=== PATIENT | male | born 1990 | race Caucasian/White ===

== ENCOUNTER 2017-08-31 03:03 | Inpatient (IN) | payer BC, OTHER ==
[~2017-08-31] VITALS: Ht 182.9 cm; Wt 104.3 kg
--- NOTE | 2017-08-31 03:30 | NUR ---
PRE-ADMISSION NOTE Patient is 28-year-old male seen at intake. Patient verbalizes he is anxious, with a headache of 7/10, and generalized body aches. Patient states he has some chills and flushing, and mild nausea. SN discussed with patient the admission policies of the unit. Patient is coherent and able to respond to questions appropriately. Pt is ambulatory with steady gait. Vital signs taken and as follows: BP: 130/82, P: 78, R: 18, O2: 95%, T: 98.8, PA: 7/10. Pt verbalized understanding of instructions and teachings regarding unit protocols such as taking of vital signs Q4H and handling and disposal of contraband. Will continue with admission upon pt's arrival on the unit. Addendum: 08/31/17 at 0718 by DILCIA DICKSON LVN Patient is [id number].
[2017-08-31] MEDS ORDERED: MAG HYDROX/AL HYDROX/SIMETH 30 ML LIQUID UDC PO PRN (03:45)
[2017-08-31] MEDS ORDERED: CLONIDINE HCL 0.1 MG TABLET PO PRN (03:45)
[2017-08-31] MEDS ORDERED: IBUPROFEN 400 MG TABLET PO PRN (03:45)
[2017-08-31] MEDS ORDERED: BUPRENORPHINE HCL 2 MG TAB.SUBL SL PRN (03:45)
[2017-08-31] MEDS ORDERED: LOPERAMIDE HCL 2 MG CAPSULE PO PRN ×2 (03:45)
[2017-08-31] MEDS ORDERED: MIRALAX 17 GM POWD.PACK PO PRN (03:45)
[2017-08-31] MEDS ORDERED: HYDROXYZINE PAMOATE 25 MG CAPSULE PO PRN (03:45)
[2017-08-31] MEDS ORDERED: THIAMINE HCL 200 MG/2 ML VIAL IM ONE (03:45)
[2017-08-31] MEDS ORDERED: LORAZEPAM 1 MG TABLET PO PRN ×2 (03:45)
[2017-08-31] MEDS ORDERED: LORAZEPAM 2 MG/1 ML VIAL IM PRN (03:45)
[2017-08-31] MEDS ORDERED: ACETAMINOPHEN 325 MG TABLET PO PRN (03:45)
[2017-08-31] MEDS: ONDANSETRON ODT 4 MG TAB.RAPDIS SL PRN (03:59)
[2017-08-31 04:00] VITALS: BP 130/82
[2017-08-31] MEDS: METHOCARBAMOL 750 MG TABLET PO PRN ×2 (04:00→20:38)
[2017-08-31] MEDS ORDERED: ONDANSETRON ODT 4 MG TAB.RAPDIS ONE (04:05)
[2017-08-31] MEDS ORDERED: METHOCARBAMOL 750 MG TABLET ONE (04:05)
[2017-08-31] MEDS ORDERED: LORAZEPAM 1 MG TABLET ONE (04:05)
[2017-08-31 04:23] LABS: BASOPHILS # (AUTO) 0.2 K/uL (0.0-8.0); EOSINOPHILS # (AUTO) 0.1 K/uL (0.0-0.7); EOSINOPHILS % (AUTO) 1.6 % (0.0-7.0); HEMATOCRIT 48.4 % (40-50); HEMOGLOBIN 16.5 G/DL (14.0-18.0); LYMPHOCYTES # (AUTO) 2.7 K/UL (0.8-4.8); LYMPHOCYTES % (AUTO) 30.2 % (20.5-51.5); MEAN CORPUSCULAR HEMOGLOBIN 29.9 UUG (27.0-31.0); MEAN CORPUSCULAR HGB CONC 34 g/dL (32.0-37.0); MEAN CORPUSCULAR VOLUME 87.5 FL (82.0-92.0); MONOCYTES # (AUTO) 0.9 K/UL (0.1-1.30); MONOCYTES % (AUTO) 10.2 % (0.0-11.0); NEUTROPHILS # (AUTO) 5.1 K/UL (1.8-8.9); PLATELET COUNT (AUTO) 304 K/UL (150-450); RED BLOOD CELL COUNT(AUTO) 5.53 MIL/UL (4.7-6.1)
[2017-08-31 04:26] LABS: *AMPHETAMINE, URINE NEGATIVE (NEGATIVE); *BARBITURATE, URINE NEGATIVE (NEGATIVE); *CANNABINOID, URINE POSITIVE (NEGATIVE); *COCCAINE, URINE NEGATIVE (NEGATIVE); *OPIATE, URINE NEGATIVE (NEGATIVE); *PHENCYCLIDINE SCREEN,URINE NEGATIVE (NEGATIVE)
[2017-08-31 04:27] LABS: THYROID STIMULATING HORMONE 3.622 mIU/mL (0.358-3.740)
[2017-08-31 04:29] LABS: ALANINE AMINOTRANSFERASE 52 U/L (16-63); ALKALINE PHOSPHATASE 91 U/L (50-136); AMYLASE 44 U/L (25-115); ASPARTATE AMINOTRANSFERASE 30 U/L (15-37); BILIRUBIN,TOTAL 1.7 mg/dL (0.2-1.0); CARBON DIOXIDE 29 mmol/L (21-32); CHLORIDE 103 mmol/L (98-107); CREATININE 1.3 mg/dL (0.6-1.3); GLUCOSE 115 mg/dL (74-106); LIPASE 132 U/L (73-393); MAGNESIUM 1.8 mg/dL (1.8-2.4); POTASSIUM 3.4 mmol/L (3.5-5.1); TOTAL PROTEIN, SERUM 7.9 g/dL (6.4-8.2); UREA NITROGEN, BLOOD 14 mg/dL (7-18)
--- NOTE | 2017-08-31 04:30 | NUR ---
ADMISSION NOTE Patient is 28-year-old male admitted on 08/31/17 for ETOH and heroin dependence, arrived on the unit at 0345. Pt has NKA and denies history of seizures. Pt was able to provide UDS at intake. Upon admission, COWS was 6 and CIWA was 12, BP: 130/82, P: 78, R: 18, O2: 95%, T: 98.8, PA: 7/10. Weight 230 lbs, height 6. Pt reports he does not have a PCP, smokes 2-3 cigarettes daily. Patient denies being hospitalized within past 30 days. Pt is able to understand and respond to all questions pertaining to his hospitalization. Substance Abuse History is as follows: 1. ETOH (Whiskey or Vodka) at least 1 liter daily, last intake of 1 liter on 08/30/17, at this rate for the 2 months. 2. Heroin, 0.5 gram/daily, last intake of 0.5 gram on 08/30/17. At this rate for 3 days. 3. Cannabis 1 joint daily, last intake was 08/30/17, of a couple hits. At this rate for the last 2 weeks. Pts longest sober period for 3 years from [id number]. Patients last treatment had been over 3 years ago. Patient has been in sober living since, participating in group homes. Patient states he relapsed 2 months ago and began drinking, until he started using Heroin again. Patient states that once he realized he started slipping he sought help. Patient denies history of substance abuse in his immediate family. PMH: Anxiety, restless legs, hx of appendectomy, and hx of ruptured tympanic membrane. Pt denies any hx of seizures. Pt brought two medications from home, Neurontin and Vistaril, but states he hasnt take any of the home meds in over 2 months because he feels that they are ineffective. Upon assessment, pt is alert and oriented x4,presents with anxiety, reports chills and headache. Respirations are even and unlabored. Patient denies SOB, chest pain, with mild tremors felt. Bowel sounds active x 4, abdomen soft. PERRLA. Skin intact, dry and warm to touch, no open wounds noted. Pt denies SI/HI. Educational information provided and left at bedside. Pt oriented to room and encouraged to notify staff with any concerns. Safety measures in place. Call light within reach, side rails up x 2, bed locked and in low position. Will continue to monitor. Addendum: 08/31/17 at 0718 by DILCIA DICKSON LVN Patient is [id number].
[2017-08-31] MEDS ORDERED: GABA-536 PO (04:31)
[2017-08-31] MEDS ORDERED: HYDR50CA PO (04:31)
[2017-08-31 04:45] LABS: ETHANOL < 3 MG/DL (0-0)
--- NOTE | 2017-08-31 07:05 | NUR ---
END OF SHIFT Patient is 27-year-old male admitted on 08/31/17 for ETOH and heroin dependence. Patient has past medical history of anxiety, restless legs, hx of appendectomy, and hx of ruptured tympanic membrane. Pt denies any hx of seizures. Patient is NKA, FULL code, and on a regular diet. Patient slept for 2 hours, total intake 500 mL, void x2, stool x0. Patient was given Ativan, Zofran, Robaxin and Vit B1 injection. Last COWS was 6, CIWA was 12. Safety measures in place, bed locked in low position, side rails up x2, call light within reach. Will endorse to day shift.
[2017-08-31 08:00] VITALS: BP 136/94
--- NOTE | 2017-08-31 08:15 | NUR ---
START OF SHIFT; RECEIVED PT ASLEEP LAYING IN BED. RESPIRATIONS EVEN AND UNLABORED. HE STATES"PLEASE LET ME SLEEP". INFORMED HIM OF MEDICATION TIMES. HE STATES HE DOES NOT WANT THEM OR NEED THEM NOW. CIWA DEFERRED. WILL CONTINUE TO MONITOR.
[2017-08-31] MEDS: FOLIC ACID 1 MG TABLET PO SCH (09:00)
[2017-08-31] MEDS: MULTIVITAMINS,THERAPEUTIC TABLET PO SCH (09:00)
[2017-08-31] MEDS: THIAMINE HCL 100 MG TABLET PO SCH (09:00)
[2017-08-31] MEDS ORDERED: TUBERCULIN,PURIF.PROT.DERIV. 5 TU/0.1 ML TEST ID ONE ×2 (09:00→13:00)
[2017-08-31 09:08] LABS: EOSINOPHILS % (MANUAL) 1 % (0-8); LYMPHOCYTES % (MANUAL) 32 % (20-40); NEUTROPHILS % (MANUAL) 67 % (42-75)
--- NOTE | 2017-08-31 09:30 | NUR ---
AM MEDS HELD. MADE AWARE. Addendum: 08/31/17 at 1749 by MIRNA LAZO RN [facility]
[2017-08-31 12:00] VITALS: BP 138/92
[2017-08-31] MEDS: LORAZEPAM 1 MG TABLET PO SCH ×3 (14:29→20:38)
[2017-08-31] MEDS ORDERED: POTASSIUM CHLORIDE 20 MEQ TAB.PRT.SR PO ONE (15:00)
[2017-08-31 16:00] VITALS: BP 139/92
--- NOTE | 2017-08-31 19:00 | NUR ---
END OF SHIFT: PT STARTED ON ATIVAN TAPER TODAY. LAST CIWA 3.HE REPORTED SOME ANXIETY AND DEPRESSION EARLIER IN SHIFT AND DENIES S/I AND H/I. HE SLEPT ON AND OFF MOST OF SHIFT . HE REFUSED PPD. NO PRNS GIVEN. WILL PASS SHIFT REPORT TO SAP BASIS ARCHITECT NURSE.
--- NOTE | 2017-08-31 19:30 | NUR ---
Start of Shift Notes Received a 27-year-old male admitted on 08/31/17 for ETOH and heroin dependence. Patient has past medical history of anxiety, restless legs, hx of appendectomy, and hx of ruptured tympanic membrane. Pt denies any hx of seizures. Patient has NKA, FULL code, and on a regular diet. During the rounds at 1930, reported that his anxiety is mild, runny nose and tremors are mild to moderate. Safety measures in place, bed locked in low position, side rails up x2, call light within reach. We'll continue to monitor.
[2017-08-31 20:00] VITALS: BP 132/82
[2017-08-31] MEDS: DICYCLOMINE HCL 20 MG TABLET PO PRN (20:38)
--- NOTE | 2017-08-31 20:39 | NUR ---
RN note PRN Bentyl and Robaxin Pt c/o abdominal spasms and generalized muscle pain=7/10. Administered Bentyl 20 mg PO PRN and Robaxin 750 mg PO PRN as ordered. Will reassess.
--- NOTE | 2017-08-31 21:40 | NUR ---
Reassessment of pain Px verbalized that his body aches decreased from 7/10 to 4-5/10 and his stomach cramps improved. We'll continue to monitor.
[2017-09-01] VITALS: BP 129/71
--- NOTE | 2017-09-01 | NUR ---
CIWA deferred CIWA deferred due to the px is asleep, to assess if the px is awake per doctor's order. We'll continue to monitor.
[2017-09-01 04:00] VITALS: BP 122/69
[2017-09-01 05:56] LABS: HEPATITIS B SURFACE AG Negative (Negative)
--- NOTE | 2017-09-01 07:14 | NUR ---
End of Shift Notes 27-year-old male admitted on 08/31/17 for ETOH and heroin dependence. Patient has past medical history of anxiety, restless legs, hx of appendectomy, and hx of ruptured tympanic membrane. Pt denies any hx of seizures. Patient has NKA, FULL code, and on a regular diet. During the shift, reported that his anxiety is mild, runny nose and tremors are mild to moderate. At 2039, Px complained abdominal spasms and generalized muscle pain=7/10. Administered Bentyl 20 mg PO PRN and Robaxin 750 mg PO PRN as ordered. Oral intake of 800 ml, voided 1x, No BM. Slept for 7 hours. Safety measures in place, bed locked in low position, side rails up x2, call light within reach. We'll continue to monitor.
[2017-09-01 08:00] VITALS: BP 122/80
--- NOTE | 2017-09-01 08:00 | NUR ---
START OF SHIFT: RECEIVED PT A/O X 4 LAYING IN BED. HE REPORTS HE IS SLEEPING OK . HE REPORTS FATIGUE AND RESTLESSNESS. HE DENIES DEPRESSION. HE STATES HE FEELS "CRAPPY". ATIVAN TAPER IN PROGRESS TO MANAGE S/S OF W/D. CIWA 6. ENCOURAGED INCREASED FLUIDS. ENCOURAGED GROUPS LATER TODAY IF HE FEELS BETTER. WILL CONTINUE TO MONITOR AND MANAGE S/S OF W/D.
[2017-09-01] MEDS: LORAZEPAM 1 MG TABLET PO SCH ×3 (09:09→21:01)
[2017-09-01] MEDS: FOLIC ACID 1 MG TABLET PO SCH (09:09)
[2017-09-01] MEDS: THIAMINE HCL 100 MG TABLET PO SCH (09:10)
[2017-09-01] MEDS: MULTIVITAMINS,THERAPEUTIC TABLET PO SCH (09:10)
[2017-09-01 12:00] VITALS: BP 135/63
[2017-09-01 16:00] VITALS: BP 123/93
--- NOTE | 2017-09-01 18:38 | NUR ---
END OF SHIFT: PT CONTINUES ON ATIVAN TAPER TODAY. LAST CIWA 6 HE REPORTED SOME ANXIETY ,RESTLESSNESS AND IRRITABILITY.HE PRESENTS WITH BLUNTED AFFECT. HE SLEPT MOST OF AM HE REPORTED NOT FEELING WELL. HE SHOWERED THIS AFTERNOON. NO PRNS GIVEN. HE STATES THE ATIVAN IS EFFECTIVE.WILL PASS SHIFT REPORT TO NIGHT NURSE.
--- NOTE | 2017-09-01 19:30 | NUR ---
Start of Shift Notes Received a 27-year-old male admitted on 08/31/17 for ETOH and heroin dependence. Patient has past medical history of anxiety, restless legs, hx of appendectomy, and hx of ruptured tympanic membrane. Pt denies any hx of seizures. Patient has NKA, FULL code, and on a regular diet. During the rounds at 1930, reported that his anxiety is so high, body aches of 8/10, H/A of 6/10, and N/V. Safety measures in place, bed locked in low position, side rails up x2, call light within reach. We'll continue to monitor.
[2017-09-01 20:00] VITALS: BP 153/86
[2017-09-01] MEDS: CLONIDINE HCL 0.1 MG TABLET PO SCH (21:01)
[2017-09-01] MEDS: GABAPENTIN 300 MG CAPSULE PO SCH (21:01)
[2017-09-01] MEDS: METHOCARBAMOL 750 MG TABLET PO PRN (21:01)
--- NOTE | 2017-09-01 21:01 | NUR ---
PRN med for pain Px complained of generalized body aches 03/29 and H/A of 02/27. Robaxin 750 mg/tab, 1 tab and Tylenol 325 mg/tab, 2 tabs given PO as PRN meds. We'll continue to monitor.
[2017-09-01] MEDS: ONDANSETRON ODT 4 MG TAB.RAPDIS SL PRN (21:02)
--- NOTE | 2017-09-01 21:02 | NUR ---
PRN Zofran SL Px complained of N/V. Zofran 4 mg/tab, 1 tab given SL as PRN med. We'll continue to monitor.
[2017-09-02] VITALS: BP 118/64
--- NOTE | 2017-09-02 | NUR ---
CIWA deferred CIWA deferred due to the px is asleep, to assess if the px is awake per doctor's order. We'll continue to monitor.
[2017-09-02 04:00] VITALS: BP 125/71
--- NOTE | 2017-09-02 07:13 | NUR ---
End of Shift Notes 27-year-old male admitted on 08/31/17 for ETOH and heroin dependence. Patient has past medical history of anxiety, restless legs, hx of appendectomy, and hx of ruptured tympanic membrane. Px denies any hx of seizures. Patient has NKA, FULL code, and on a regular diet. During the shift, reported that his anxiety is so high, body aches of 8/10, H/A of 6/10, and N/V. Robaxin 750 mg/tab, 1 tab and Tylenol 325 mg/tab, 2 tabs given PO as PRN meds. Zofran 4 mg/tab, 1 tab given SL as PRN med. Oral intake of 850 ml, voided 2x, No BM. Slept for 6.5 hours. Safety measures in place, bed locked in low position, side rails up x2, call light within reach. We'll continue to monitor. Endorsed to AM shift nurse.
[2017-09-02 08:00] VITALS: BP 103/64
--- NOTE | 2017-09-02 08:15 | NUR ---
START OF SHIFT: RECEIVED PT A/O X 4 LAYING IN BED. HE REPORTS HE IS SLEEPING OK . HE REPORTS DEPRESSION AND BECAME TEARFUL ON ASSESSMENT REGARDING HIS RELAPSE AND MISSING HOME. CIWA 5 HE DENIES S/I AND H/I. HE STATES HE FEELS TIRED AND RESTLESS. ATIVAN TAPER IN PROGRESS TO MANAGE S/S OF W/D. ENCOURAGED INCREASED FLUIDS. ENCOURAGED GROUP ATTENDANCE THIS AM TO PROCESS FEELINGS. ENCOURAGED HIM NOT TO ISOLATE IN HIS ROOM AND TO INTERACT MORE WITH PEERS.WILL CONTINUE TO MONITOR AND OFFER SUPPORT.
[2017-09-02] MEDS ORDERED: LORAZEPAM 1 MG TABLET PO SCH (09:00)
[2017-09-02] MEDS: LORAZEPAM 1 MG TABLET PO SCH ×4 (10:03→21:36)
[2017-09-02] MEDS: THIAMINE HCL 100 MG TABLET PO SCH (10:04)
[2017-09-02] MEDS: CLONIDINE HCL 0.1 MG TABLET PO SCH ×2 (10:04→21:37)
[2017-09-02] MEDS: GABAPENTIN 300 MG CAPSULE PO SCH ×2 (10:05→21:37)
[2017-09-02] MEDS: MULTIVITAMINS,THERAPEUTIC TABLET PO SCH (10:05)
[2017-09-02] MEDS: FOLIC ACID 1 MG TABLET PO SCH (10:06)
[2017-09-02 12:00] VITALS: BP 117/61
[2017-09-02] MEDS: BUPRENORPHINE HCL 2 MG TAB.SUBL SL SCH ×3 (12:22→21:37)
--- NOTE | 2017-09-02 13:42 | NUR ---
PRN ZOFRAN ODT GIVEN FOR REPORTED NAUSEA. TRANSFER OF CARE TO RECEIVING NURSE. REPORT GIVEN.
[2017-09-02] MEDS: ONDANSETRON ODT 4 MG TAB.RAPDIS SL PRN (13:47)
--- NOTE | 2017-09-02 13:59 | NUR ---
ENDORSEMENT FROM OUTGOING RN Received report from outgoing RN Soraya. Quilt Maker will resume care of patient.
[2017-09-02] MEDS ORDERED: LORAZEPAM 1 MG TABLET PO PRN ×2 (14:00)
[2017-09-02] MEDS ORDERED: LORAZEPAM 1 MG TABLET PO ONE (14:00)
--- NOTE | 2017-09-02 14:44 | NUR ---
Therapist prompted client about group times. Client stated he wants to rest today and will try to go to groups tomorrow.
--- NOTE | 2017-09-02 14:47 | NUR ---
ONE TIME ATIVAN Patient's CIWA 11. One time Ativan given as ordered. Will continue to monitor patient.
--- NOTE | 2017-09-02 15:47 | NUR ---
REASSESSMENT ONE TIME ATIVAN Patient's CIWA is 9. Med effective.
[2017-09-02 16:00] VITALS: BP 130/79
--- NOTE | 2017-09-02 17:13 | NUR ---
PRN CLONIDINE Patient complains of anxiety. PRN clonidine given (130/79, HR 92). Will continue to monitor patient.
[2017-09-02] MEDS: ONDANSETRON 4 MG/2 ML VIAL IM PRN (17:42)
--- NOTE | 2017-09-02 17:42 | NUR ---
PRN ZOFRAN IM Patient vomited X2. PRN zofran IM given. Will continue to monitor patient.
--- NOTE | 2017-09-02 18:06 | NUR ---
PRN ATIVAN 2MG PO Patient's CIWA 17. PRN Ativan 2mg po given as ordered and as discussed with Dr. Ortega.
--- NOTE | 2017-09-02 18:13 | NUR ---
REASSESSMENT PRN CLONIDINE Patient reports med mildly effective. Patient remains anxious.
--- NOTE | 2017-09-02 18:20 | NUR ---
REASSESSMENT ZOFRAN IM Patient reports vomiting ceased and nausea improved.
--- NOTE | 2017-09-02 19:00 | NUR ---
REASSESSMENT PRN ATIVAN 2MG PO Patient's CIWA is now 10. Patient reports symptoms have improved.
--- NOTE | 2017-09-02 19:15 | NUR ---
START OF SHIFT NOTE : Patient is 48 year old male admitted for medically supervised withdrawal from alcohol and heroin. Patient is full code with NKA. Pt. placed on 5-day Ativan taper on 08/31/2017 and modified subutex taper on 09/02/2017. Pt. complains of anxiety, body ache, sleeplessness. Denies diarrhea and goosebumps at this time. Ambulating with steady gait, no falls noted. Safety measures in place : bed on lowest position with side rails x2 up for safety, call light within reach. Will continue to monitor closely and offer help. Addendum: 09/03/17 at 0650 by ABIGAIL MAYER RN Pt. is 27 years old
--- NOTE | 2017-09-02 19:17 | NUR ---
END OF SHIFT Patient is 48 year old male admitted for medically supervised withdrawal from alcohol and heroin. Patient is full code with NKA. On 5-day Ativan and modified subutex taper. Most recent CIWA: 10 and COWS: 13. Reports anxiety, body aches, mild sweating, tremors, stomach cramps, chills, runny nose, restlessness. Denies diarrhea and goosebumps at this time. Med complaint this shift. ONE time Ativan ordered, PRN clonidine (anxiety), PRN Zofran IM given (vomited X2) and PRN Ativan 2mg po (CIWA 17) given. Ambulating with steady gait, no falls noted. No BM reported. overnight housepersonawake overnight counselor will continue to monitor patient. Addendum: 09/02/17 at 1919 by MELINDA MARINO RN Patient is 27 years old (not 48 yrs old)
[2017-09-02 20:00] VITALS: BP 116/76
--- NOTE | 2017-09-02 21:00 | NUR ---
PRN BENADRYL Pt. complains of sleeplessness. PRN BENADRYL given as ordered. Safety measures in place : bed on lowest position with side rails x2 up for safety, call light within reach. Will continue to monitor closely and offer help.
[2017-09-02] MEDS: diphenhydrAMINE 50 MG CAPSULE PO PRN (21:36)
--- NOTE | 2017-09-02 22:00 | NUR ---
RE-ASSESSMENT TIM Pt. is sleeping, RR=16 unlabored and even. Safety measures in place : bed on lowest position with side rails x2 up for safety, call light within reach. Will continue to monitor closely and offer help.
--- NOTE | 2017-09-03 06:50 | NUR ---
END OF SHIFT NOTE : Patient is 27 year old male admitted for medically supervised withdrawal from alcohol and heroin. Patient is full code with NKA. Pt. placed on 5-day Ativan taper on 08/31/2017 and modified subutex taper on 09/02/2017. Pt remains compliant with the treatment plan. PRN BENADRYL given during my shift. V/S remain WNL. RR=16, even and unlabored, lungs clear upon auscultation, abdomen soft and non- distended. Pt denies nausea, vomiting and diarrhea. CIWA and COWS taken when pt. was alert during the night, LAST CIWA=5 ,COWS=5 at 0400 , BPLISJ=0632 ml, voided x3 , slept 8 hours. Safety measures in place : bed on lowest position with side rails x2 up for safety, call light within reach. Will continue to monitor closely and offer help.
--- NOTE | 2017-09-03 07:30 | NUR ---
START OF SHIFT Pt 27 y/o male admitted for medically supervised withdrawal. Pt received in room on bed with eyes closed resting, but easily arousable to name. Pt alert and oriented to name, place, and time. Perrla. Skin warm and slightly moist to touch. Respirations even and unlabored. Bilateral hand tremors noted slightly. It was reported that pt slept for 8 hours last night. Bed on lowest position with side rails x2 up for safety. Call light within reach. No distress noted at this time.
[2017-09-03 08:00] VITALS: BP 111/68
[2017-09-03] MEDS: METHOCARBAMOL 750 MG TABLET PO PRN ×2 (08:58→21:07)
[2017-09-03] MEDS: LORAZEPAM 1 MG TABLET PO SCH ×4 (08:58→21:07)
[2017-09-03] MEDS: CLONIDINE HCL 0.1 MG TABLET PO SCH ×2 (08:59→21:07)
[2017-09-03] MEDS: GABAPENTIN 300 MG CAPSULE PO SCH ×2 (08:59→21:07)
[2017-09-03] MEDS: THIAMINE HCL 100 MG TABLET PO SCH (08:59)
[2017-09-03] MEDS: MULTIVITAMINS,THERAPEUTIC TABLET PO SCH (08:59)
[2017-09-03] MEDS: FOLIC ACID 1 MG TABLET PO SCH (08:59)
[2017-09-03] MEDS ORDERED: BUPRENORPHINE HCL 2 MG TAB.SUBL SL SCH (09:00)
[2017-09-03] MEDS ORDERED: LORAZEPAM 1 MG TABLET PO SCH (09:00)
--- NOTE | 2017-09-03 09:02 | NUR ---
prn Pt states has body aches 8/10. Robaxin po prn per MD order given and tolerated well.
--- NOTE | 2017-09-03 10:02 | NUR ---
PRN EVAL Pt states body aches 10/30.
[2017-09-03 12:00] VITALS: BP 131/85
[2017-09-03] MEDS: BUPRENORPHINE HCL 2 MG TAB.SUBL SL SCH ×2 (14:09→21:07)
[2017-09-03] MEDS: ONDANSETRON 4 MG/2 ML VIAL IM PRN (14:50)
--- NOTE | 2017-09-03 14:54 | NUR ---
PRN Pt with 1 vomit episode. Zofran im prn per MD order given and tolerated well.
--- NOTE | 2017-09-03 15:54 | NUR ---
PRN EVAL Pt denies any nausea at this time.
[2017-09-03 16:00] VITALS: BP 125/83
[2017-09-03] MEDS: MAGNESIUM HYDROXIDE 30 ML LIQUID UDC PO PRN (18:21)
--- NOTE | 2017-09-03 18:24 | NUR ---
PRN Pt states feels constipated. MOM po prn per MD order given and tolerated well.
--- NOTE | 2017-09-03 18:45 | NUR ---
END OF SHIFT Pt 27 y/o male admitted for medically supervised withdrawal. Pt alert and oriented to name, place, and time. Perrla. Skin warm and slightly moist to touch. Respirations even and unlabored. Bilateral hand tremors noted. Pt observed mostly isolative to room throughout the day. Pt did not attend group activity. Pt was seen by MD today. Pt medication compliant and tolerated well. No ASE noted. Bed on lowest position with side rails x2 up for safety. Call light within reach. No distress noted at this time.
--- NOTE | 2017-09-03 19:15 | NUR ---
Start of Shift Note: Patient is a 27 y.o male admitted on 08/31/17 for Opiate and ETOH dependence. Patient reported drinking atleast 1 liter daily for 2 months, Heroin 0.5 grams daily for 3 days and Cannabis 1 joint daily for 2 weeks. Patient has PMHx of Anxiety, Restless leges, Hx of Appendectomy and Ruptured Tympanic Membrane. No seizure history noted. Patient is on a regular diet with no known food and drug allergies. Full Code status. Skin intact. Patient is on a modified Ativan and Subutex taper and tolerating well. Last COWS 7 CIWA 3. PRN Zofran IM, Robaxin & MOM given during day shift. Patient is alert & oriented x4. Patient is ambulatory with a steady gait. No shortness of breath noted. Respiration even & unlabored. Pt presented with complaints of sweating, chills, 6/10 generalized body aches, stuffy nose, flushed face, restlessness, nausea & anxiety. Bilateral hand tremors noted. Patient denies any hallucinations at this time. Safety measures in place. Bed locked in lowest position. Both side rails up. Call light within pt's reach. Will continue to monitor patient.
[2017-09-03 20:00] VITALS: BP 164/85
[2017-09-03] MEDS: ONDANSETRON ODT 4 MG TAB.RAPDIS SL PRN (21:07)
--- NOTE | 2017-09-03 21:07 | NUR ---
PRn Robaxin & Zofran Patient complains of nausea and body aches. NO episode of vomiting noted. PRn Zofran and Robaxin administered as ordered. Will continue to monitor patient.
[2017-09-03] MEDS: DICYCLOMINE HCL 20 MG TABLET PO PRN (22:00)
--- NOTE | 2017-09-03 22:00 | NUR ---
PRn Bentyl and Miralax Patient complained of constipation and abdominal cramping. PRN Miralax and Bentyl administered as ordered. Will continue to monitor patient,
--- NOTE | 2017-09-03 22:07 | NUR ---
PRN Reassessment Pt verbalized nausea and relief from body aches. PRN medication effective. Will continue to monitor patient.
--- NOTE | 2017-09-03 23:00 | NUR ---
PRN Reassessment Pt verbalized relief from stomach cramping. Pt still with no bowel movement. Will continue to monitor patient/
[2017-09-04] VITALS: BP 112/70
[2017-09-04 04:00] VITALS: BP 106/70
--- NOTE | 2017-09-04 07:12 | NUR ---
End of Shift Note: Patient is a 27 y.o male admitted on 08/31/17 for Opiate and ETOH dependence. Patient had an uneventful night. Patient continues on his Subutex and Ativan taper and tolerating well. Last COWS is 10 CIWA 5. Pt reported that taper medication is effective in controlling his withdrawal symptoms. Pt received PRN Bentyl for stomach cramps, Miralax for constipation, Robaxin for body aches and Zofran for nausea. Patient remained stable and vitals WNL. Pt remained compliant with medications and treatment. Patient slept for a total of 8 hours. Fluid intake: 1400ml. Will continue to encourage pt to increase fluid intake. Will continue to encourage pt to increase fluid intake. Voided 2x. Still no bowel movement noted. Will continue to monitor for BM. All needs attended & met. Safety measures in place. Will endorse pt to day shift nurse.
--- NOTE | 2017-09-04 07:30 | NUR ---
START OF SHIFT Pt 27 y/o male admitted for medically supervised withdrawal. Pt received in room on bed awake. Pt alert and oriented to name, place, and time. Perrla. Skin warm and slightly moist to touch. Respirations even and unlabored. Bilateral hand tremors noted slightly. Pt states feels slightly anxious this morning. It was reported that pt slept for 8 hours last night. Bed on lowest position with side rails x2 up for safety. Call light within reach. No distress noted at this time.
[2017-09-04 08:00] VITALS: BP 129/72
[2017-09-04] MEDS ORDERED: LORAZEPAM 1 MG TABLET PO SCH ×2 (09:00)
[2017-09-04] MEDS: LORAZEPAM 1 MG TABLET PO SCH ×3 (09:37→21:26)
[2017-09-04] MEDS: BUPRENORPHINE HCL 2 MG TAB.SUBL SL SCH ×3 (09:38→21:26)
[2017-09-04] MEDS: FOLIC ACID 1 MG TABLET PO SCH (09:39)
[2017-09-04] MEDS: MULTIVITAMINS,THERAPEUTIC TABLET PO SCH (09:39)
[2017-09-04] MEDS: CLONIDINE HCL 0.1 MG TABLET PO SCH ×2 (09:39→21:27)
[2017-09-04] MEDS: THIAMINE HCL 100 MG TABLET PO SCH (09:39)
[2017-09-04] MEDS: GABAPENTIN 300 MG CAPSULE PO SCH ×3 (09:39→21:26)
[2017-09-04] MEDS: METHOCARBAMOL 750 MG TABLET PO PRN ×2 (09:43→21:27)
[2017-09-04] MEDS: MAGNESIUM HYDROXIDE 30 ML LIQUID UDC PO PRN (09:43)
--- NOTE | 2017-09-04 09:43 | NUR ---
PRN Pt with c/o generalized pain 5/10. Motrin po prn per MD order given and tolerated well.
--- NOTE | 2017-09-04 09:43 | NUR ---
PRN Pt states he is constipated. MOM oral prn per MD order given and tolerated well.
--- NOTE | 2017-09-04 09:43 | NUR ---
PRN Pt with c/o body aches 02/27. Robaxin po prn per MD order given and tolerated well.
[2017-09-04] MEDS: IBUPROFEN 600 MG TABLET PO PRN ×2 (09:44→21:26)
--- NOTE | 2017-09-04 10:43 | NUR ---
PRN EVAL Pt states body aches 10/30.
--- NOTE | 2017-09-04 10:43 | NUR ---
PRN EVAL Pt still with no BM. Awaiting call back MD. Encourage po fluids and ambulation.
--- NOTE | 2017-09-04 10:43 | NUR ---
PRN [place] pt states pain 11/27.
--- NOTE | 2017-09-04 12:09 | NUR ---
Therapist prompted client to attend group. Client agreed to attend group today.
[2017-09-04 12:34] VITALS: BP 116/72
[2017-09-04] MEDS ORDERED: MAGNESIUM CITRATE 296 ML BOTTLE PO ONE (13:00)
--- NOTE | 2017-09-04 13:19 | NUR ---
ONE TIME Pt still with no BM. made aware with new order for magnesium citrate oral drink , noted and carried out.
[2017-09-04 16:00] VITALS: BP 121/77
[2017-09-04] MEDS ORDERED: NICOTINE POLACRILEX 4 MG GUM-PK OF TEN BC PRN (16:00)
[2017-09-04] MEDS: NICOTINE 14 MG/24HR PATCH TD SCH (16:00)
[2017-09-04] MEDS ORDERED: LACTULOSE 20 G/30 ML LIQUID UDC PO PRN (16:00)
--- NOTE | 2017-09-04 18:38 | NUR ---
END OF SHIFT Pt 27 y/o male admitted for medically supervised withdrawal. Pt alert and oriented to name, place, and time. Perrla. Skin warm and slightly moist to touch. Respirations even and unlabored. Bilateral hand tremors noted. Pt observed mostly isolative to room throughout the day. Pt did attend group activity. Pt was seen by MD today. Pt medication compliant and tolerated well. No ASE noted. Bed on lowest position with side rails x2 up for safety. Call light within reach. No distress noted at this time.
--- NOTE | 2017-09-04 19:15 | NUR ---
Start of Shift Note: Patient is a 27 y.o male admitted on 08/31/17 for Opiate and ETOH dependence. Patient reported drinking atleast 1 liter daily for 2 months, Heroin 0.5 grams daily for 3 days and Cannabis 1 joint daily for 2 weeks. Patient has PMHx of Anxiety, Restless legs, Hx of Appendectomy and Ruptured Tympanic Membrane. No seizure history noted. Patient is on a regular diet with no known food and drug allergies. Full Code status. Skin intact. Patient is on a modified Ativan and Subutex taper and tolerating well. Last COWS 5 CIWA . Pt received PRN Motrin, Robaxin, MOM & Mag Citrate during day shift and was effective. Patient is alert & oriented x4. Patient is ambulatory with a steady gait. No shortness of breath noted. Respiration even & unlabored. Pt presented with complaints 6/10 generalized body aches, moderate headache, stuffy nose, flushed face, restlessness & anxiety. Bilateral hand tremors noted. Patient denies any hallucinations at this time. Safety measures in place. Bed locked in lowest position. Both side rails up. Call light within pt's reach. Will continue to monitor patient.
[2017-09-04 20:00] VITALS: BP 123/80
--- NOTE | 2017-09-04 21:26 | NUR ---
PRN Motrin & Robaxin Patient complains of moderate headache and 6/10 generalized body aches. Non-pharmacological intervention provided but not effective. PRN Motrin & Robaxin administered as ordered. Will continue to monitor patient.
--- NOTE | 2017-09-04 22:26 | NUR ---
PRN Reassessment PRN medication effective. Pt verbalized decreased in pain from 6/10 to 3/10 pain. Pt also verbalized relief from headache. Will contineu to monitor patient.
[2017-09-05] VITALS: BP 93/60
--- NOTE | 2017-09-05 07:07 | NUR ---
End of Shift Note: Patient is a 27 y.o male admitted on 08/31/17 for Opiate and ETOH dependence. Patient had an uneventful night. Patient continues on his Subutex and Ativan taper and tolerating well. Last COWS is 5 CIWA 7. Pt reported that taper medication is effective in controlling his withdrawal symptoms. Pt received PRN Robaxin for body aches and Motrin for headache and was effective. Patient remained stable and vitals WNL. Pt remained compliant with medications and treatment. Patient slept for a total of 8 hours. Fluid intake: 1296 ml. Will continue to encourage pt to increase fluid intake. Will continue to encourage pt to increase fluid intake. Voided 3x with 1x bowel movement. Will continue to monitor for BM. All needs attended & met. Safety measures in place. Will endorse pt to day shift nurse.
--- NOTE | 2017-09-05 07:45 | NUR ---
START OF SHIFT NOTE Received report from night nurse, 27 year old male admitted on 08/31/17 for Opiate and ETOH dependence. Patient has PMH of Anxiety, Restless leges, Hx of Appendectomy and Ruptured Tympanic Membrane. Per endorsement patient Motrin/Robaxin, last CIWA-7, COWS-5, slept for 8 hours. Received patient in room alert and oriented x 4. Patient presented with anxiety, agitation, chills, sweats. Educated patient on the current plan of care for the day and medication regimen. Safety measures in place. call light kept with in reach, Will continue to monitor.
[2017-09-05 08:00] VITALS: BP 119/78
[2017-09-05] MEDS: FOLIC ACID 1 MG TABLET PO SCH (08:46)
[2017-09-05] MEDS: NICOTINE 14 MG/24HR PATCH TD SCH (08:46)
[2017-09-05] MEDS: GABAPENTIN 300 MG CAPSULE PO SCH ×3 (08:46→20:39)
[2017-09-05] MEDS: MULTIVITAMINS,THERAPEUTIC TABLET PO SCH (08:47)
[2017-09-05] MEDS: LORAZEPAM 1 MG TABLET PO SCH ×2 (08:47→20:39)
[2017-09-05] MEDS: BUPRENORPHINE HCL 2 MG TAB.SUBL SL SCH ×2 (08:47→20:39)
[2017-09-05] MEDS: THIAMINE HCL 100 MG TABLET PO SCH (08:47)
[2017-09-05] MEDS: CLONIDINE HCL 0.1 MG TABLET PO SCH ×2 (08:49→20:40)
[2017-09-05] MEDS ORDERED: LORAZEPAM 1 MG TABLET PO SCH (09:00)
[2017-09-05] MEDS ORDERED: BUPRENORPHINE HCL 2 MG TAB.SUBL SL SCH (09:00)
[2017-09-05] MEDS: IBUPROFEN 600 MG TABLET PO PRN (10:59)
--- NOTE | 2017-09-05 10:59 | NUR ---
PRN MOTRIN Patient was c/o headache 01/27, PRN Motrin 600mg Po administered as ordered, Will cont to monitor and reassess the Pt.
--- NOTE | 2017-09-05 11:59 | NUR ---
MOTRIN REASSESSMENT Patient stated medication was effective headache decreased to 1/10.
[2017-09-05 12:00] VITALS: BP 125/77
[2017-09-05 16:00] VITALS: BP 117/72
[2017-09-05] MEDS ORDERED: IBUPROFEN 600 MG TABLET PO PRN (16:15)
[2017-09-05] MEDS ORDERED: IBUPROFEN 800 MG TABLET PO PRN (16:30)
--- NOTE | 2017-09-05 19:02 | NUR ---
END OF SHIFT NOTE Patient cont with Ativan/Subutex taper tolerating well. During shift patient received Motrin for headache noted to be effective. Vital signs remained WNL. Encourage Po fluids as tolerated. Last CIWA score was 4/COWS-5 @ 1600. Patient attended groups and activities. Skin intact warm and dry to touch. All needs attended, Safety measures in place. Patient endorsed to night nurse in stable condition.
--- NOTE | 2017-09-05 19:02 | NUR ---
START OF SHIFT NOTE: Patient is a 27 year male admitted on 08/25/2017 for Alcohol, and Opioid dependence, continues 5 day Ativan taper since 08/31/2017, and modified Subutex taper since 09/02/17. Patient tolerated well without ASE. Patient remains compliant with treatment, medications, and diet regime. Patient reports NKA, is on Full Code, Regular Diet, Fall and Seizures Precautions. Patient denies Seizures history. PMH: Anxiety, Depression, History of ruptured tympanic membrane, history of appendectomy. Upon endorsement. patient is in the room alert and oriented x4 with stable gait. Speech is soft and clear. COWS 5, CIWA 5. Patient's anxiety agitation, nervousness, tremors, restlessness, body aches, and sweating. VS: T: 97.6, HR: 77, BP: 126/75, RA O2 SAT: 98%, RR: 19, pain level: "7/10". Respirations unlabored and even. Lungs Sounds are clear thoroughly. Abdomen is soft, non-tender. Bowels Sounds presents in all x4 quadrants. Skin is intact, warm, and dry. Encouraged to fluids intake as tolerated. Encouraged to attending groups activities. All needs met. Safety measures in place: Call light within reach, bed locked, and in lowest position, padded bed rails up bilaterally. Patient endorsed by day shift nurse, report received.
[2017-09-05 20:00] VITALS: BP 126/75
[2017-09-05] MEDS: METHOCARBAMOL 750 MG TABLET PO PRN (20:39)
--- NOTE | 2017-09-05 20:39 | NUR ---
PRN ROBAXIN 750 MG 1 TAB PO ADMINISTRATION Patient c/o muscle spasm. PRN Robaxin 750mg 1 tab PO administrated as ordered with full glass of water. Patient tolerated well. All needs met. Safety measures in place: Call light within reach, bed is locked and in the lowest position, padded bed rails up x2. Will continue to monitor closely.
--- NOTE | 2017-09-05 21:39 | NUR ---
RE-ASSESSMENT Patient is sleeping. Respirations even and unlabored. RR:16. PRN Robaxin 750mg 1 tab PO administrated for myalgia @2038 was effective. All needs met. Safety measures on place. Call light within reach, bed in lowest position and locked, padded rails up bilaterally rails up bilaterally. Will continue to monitor closely.
[2017-09-06] VITALS: BP 123/69
[2017-09-06 04:00] VITALS: BP 110/63
--- NOTE | 2017-09-06 06:42 | NUR ---
END OF SHIFT NOTE: Patient is a 27 year male admitted on 08/25/2017 for Alcohol and Opioid dependence, continues 5 day Ativan taper since 08/31/2017, and modified Subutex taper since 09/02/17. Patient tolerated well without ASE. Patient remains compliant with treatment, medications, and diet regime. Patient reports NKA, is on Full Code, Regular Diet, Fall and Seizures Precautions. Patient denies Seizures history. PMH: Anxiety, Depression, History of ruptured tympanic membrane, history of appendectomy. Last COWS 5, CIWA 4 @0400. Patient's presented with anxiety agitation, nervousness, tremors, restlessness, body aches, and sweating. Last VS @ 0400: T: 98.3, HR: 73, BP: 110/63, RA O2 SAT: 96%, RR: 18, generalized body aches pain level: "5/10". Respirations unlabored and even. Skin remains intact, warm, and dry to touch. Encouraged to fluids intake as tolerated. PRN Robaxin 750mg 1 tab PO administrated for myalgia @2038 was effective. Patient remains compliant with medications. Patient slept 8 hours, intake 547 ml, voided x2. Encouraged to fluids intake as tolerated. Encouraged to attending groups activities. All needs met. Safety measures in place: Call light within reach, bed locked, and in lowest position, padded bed rails up bilaterally. Patient endorsed to day shift nurse, report given.
--- NOTE | 2017-09-06 07:40 | NUR ---
START OF SHIFT NOTE Received report from night nurse, 27 year old male admitted for Opiate and ETOH dependence. Patient has PMH of Anxiety, Restless legs, History of Appendectomy and Ruptured Tympanic Membrane. Per endorsement patient Bishnu, last CIWA-4, COWS-5, slept for 8 hours. Received patient in room alert and oriented x 4. Patient presented with anxiety, agitation, chills, sweats. Educated patient on the current plan of care for the day and medication regimen. Safety measures in place. call light kept with in reach, Will continue to monitor.
[2017-09-06 08:00] VITALS: BP 117/72
[2017-09-06] MEDS: MULTIVITAMINS,THERAPEUTIC TABLET PO SCH (08:14)
[2017-09-06] MEDS: THIAMINE HCL 100 MG TABLET PO SCH (08:14)
[2017-09-06] MEDS: FOLIC ACID 1 MG TABLET PO SCH (08:14)
[2017-09-06] MEDS: GABAPENTIN 300 MG CAPSULE PO SCH ×3 (08:14→20:36)
[2017-09-06] MEDS: NICOTINE 14 MG/24HR PATCH TD SCH (08:15)
[2017-09-06] MEDS: CLONIDINE HCL 0.1 MG TABLET PO SCH ×3 (08:15→20:37)
--- NOTE | 2017-09-06 08:21 | NUR ---
PRN MOTRIN Patient was c/o headache 01/27, PRN Motrin 800mg Po administered as ordered, Will cont to monitor and reassess the Pt.
[2017-09-06] MEDS ORDERED: BUPRENORPHINE HCL 2 MG TAB.SUBL SL SCH (09:00)
[2017-09-06] MEDS ORDERED: LORAZEPAM 1 MG TABLET PO SCH (09:00)
--- NOTE | 2017-09-06 09:21 | NUR ---
MOTRIN REASSESSMENT Patient stated medication was effective headache decreased to 0/10.
[2017-09-06 12:00] VITALS: BP 113/80
[2017-09-06] MEDS: LORAZEPAM 1 MG TABLET PO SCH ×2 (14:47→20:37)
[2017-09-06] MEDS: BUPRENORPHINE HCL 2 MG TAB.SUBL SL SCH ×2 (14:47→20:36)
[2017-09-06] MEDS: DICYCLOMINE HCL 20 MG TABLET PO SCH ×2 (14:47→20:36)
[2017-09-06 16:00] VITALS: BP 120/66
[2017-09-06] MEDS: ONDANSETRON ODT 4 MG TAB.RAPDIS SL PRN (16:52)
--- NOTE | 2017-09-06 16:52 | NUR ---
PRN ZOFRAN Patient reported nauseated and emesis x1, PRN Zofran 4mg SL given as ordered. Will cont to monitor and reassess.
--- NOTE | 2017-09-06 17:22 | NUR ---
ZOFRAN REASSESSMENT Patient reported Zofran was effective nausea improved and no episode of emesis at this time.
--- NOTE | 2017-09-06 19:10 | NUR ---
END OF SHIFT NOTE Patient cont with Ativan/Subutex taper tolerating well. During shift patient received PRN Zofran noted to be effective. Vital signs remained WNL. Encourage Po fluids as tolerated. Last CIWA score was 6/COWS-6 @ 1600. Patient attended groups and activities. Skin intact warm and dry to touch. All needs attended, Safety measures in place. Patient endorsed to night nurse in stable condition.
--- NOTE | 2017-09-06 19:20 | NUR ---
START OF SHIFT Patient is a 27-year-old male admitted 08/31/17 for ETOH and dependence and intermittent heroin use. Patient has a past medical history of anxiety, appendectomy and ruptured tympanic membrane. Patient is currently on a 5-day Ativan taper and a modified Subutex taper, tolerating well. Patient is FULL code, NKA to food or drugs, on a regular diet. Patient is on fall and seizure precautions with no history of seizure. Upon assessment, patient is alert and oriented x4, reports generalized body aches of 7/10 and pt also reports small areas of mild rash, bilaterally below his armpits. MD to assess in the morning. Patient states he was nauseous earlier today with an episode of emesis, however, after PRN Zofran, patient states his nausea has resolved. Safety measures in place, bed locked in low position, side rails up x2, call light within reach. Will continue to monitor.
[2017-09-06 20:00] VITALS: BP 114/72
[2017-09-06] MEDS: METHOCARBAMOL 750 MG TABLET PO PRN (20:36)
--- NOTE | 2017-09-06 20:36 | NUR ---
PRN ROBAXIN Patient complains of generalized body aches, 03/29. PRN Robaxin given PO. Patient's respirations are even and unlabored, only slight facial grimace noted r/t pain/discomfort. Safety measures in place, call light within reach. Will reassess in one hour.
--- NOTE | 2017-09-06 21:36 | NUR ---
PRN ROBAXIN REASSESSMENT Patient states his pain has improved, currently 3/10 on pain scale. PRN Robaxin effective. . Patient's respirations are even and unlabored. Safety measures in place, bed locked in low position, side rails up x2, call light within reach. Will continue to monitor.
[2017-09-06] MEDS: diphenhydrAMINE 50 MG CAPSULE PO PRN (23:12)
--- NOTE | 2017-09-06 23:12 | NUR ---
PRN BENADRYL Patient reports inability to sleep despite sleepiness, and is requesting aid. PRN Benadryl given PO. Patient's respirations are even and unlabored, safety measures in place, call light within reach. Will reassess in one hour.
[2017-09-07] VITALS: BP 100/58
--- NOTE | 2017-09-07 | NUR ---
COWS & CIWA DEFERRED COWS and CIWA deferred due to patient asleep; to be assessed and scored while patient is awake, per protocol. Patient's respirations are 12/min, even and unlabored. Safety measures in place, bed locked in low position, side rails up x2, call light within reach. Will continue to monitor.
--- NOTE | 2017-09-07 00:12 | NUR ---
PRN BENADRYL REASSESSMENT Patient is resting in bed with eyes closed, PRN Benadryl effective.Patient's respirations are even and unlabored, safety measures in place, bed locked in low position, side rails up x2, call light within reach. Will continue to monitor.
--- NOTE | 2017-09-07 04:00 | NUR ---
4AM VITALS REFUSED, COWS & CIWA DEFERRED Patient refused 4AM vital signs. COWS and CIWA deferred due to patient asleep; to be assessed and scored while patient is awake, per protocol. Patient's respirations are 14/min, even and unlabored. Safety measures in place, bed locked in low position, side rails up x2, call light within reach. Will continue to monitor.
--- NOTE | 2017-09-07 07:03 | NUR ---
END OF SHIFT Patient is a 27-year-old male admitted 08/31/17 for ETOH and dependence and intermittent heroin use. Patient has a past medical history of anxiety, appendectomy and ruptured tympanic membrane. Patient is currently on a 5-day Ativan taper and a modified Subutex taper, tolerating well. Patient is FULL code, NKA to food or drugs, on a regular diet. Patient is on fall and seizure precautions with no history of seizure. Patient slept for 6 hours, total intake of 1,210 mL, void x3, stool x0. Patient received PRN Robaxin for generalized body aches, and Benadryl for inablitiy to sleep; both effective. Last COWS 6, CIWA 7. Safety measures in place, bed locked in low position, side rails up x2, call light within reach. Will endorse to day shift.
[2017-09-07 08:00] VITALS: BP 110/70
--- NOTE | 2017-09-07 08:00 | NUR ---
START OF SHIFT NOTE Received report from night nurse, 27 year old male admitted for Opiate and ETOH dependence. Patient has PMH of Anxiety, Restless legs, History of Appendectomy and Ruptured Tympanic Membrane. Per endorsement patient Yaakov Goetz effective per night nurse, last CIWA-7, COWS-6, slept for 6 hours. Received patient in room alert and oriented x 4. Patient presented with anxiety, agitation, chills, sweats. Educated patient on the current plan of care for the day and medication regimen. Safety measures in place. call light kept with in reach, Will continue to monitor.
[2017-09-07] MEDS: GABAPENTIN 300 MG CAPSULE PO SCH ×3 (08:30→21:18)
[2017-09-07] MEDS: FOLIC ACID 1 MG TABLET PO SCH (08:30)
[2017-09-07] MEDS: MULTIVITAMINS,THERAPEUTIC TABLET PO SCH (08:30)
[2017-09-07] MEDS: NICOTINE 14 MG/24HR PATCH TD SCH (08:30)
[2017-09-07] MEDS: THIAMINE HCL 100 MG TABLET PO SCH (08:30)
[2017-09-07] MEDS: DICYCLOMINE HCL 20 MG TABLET PO SCH ×3 (08:30→21:18)
[2017-09-07] MEDS: CLONIDINE HCL 0.1 MG TABLET PO SCH ×3 (08:33→21:18)
[2017-09-07] MEDS ORDERED: LORAZEPAM 1 MG TABLET PO SCH (09:00)
[2017-09-07] MEDS ORDERED: BUPRENORPHINE HCL 2 MG TAB.SUBL SL SCH (09:00)
[2017-09-07 12:00] VITALS: BP 118/89
[2017-09-07 16:00] VITALS: BP 110/64
[2017-09-07] MEDS ORDERED: METH-406 PO (16:57)
[2017-09-07] MEDS ORDERED: DIPH50CA37 PO (16:57)
[2017-09-07] MEDS ORDERED: DICY20TA28 PO (16:57)
[2017-09-07] MEDS ORDERED: ONDA4TAB11 SL (16:57)
[2017-09-07] MEDS ORDERED: GABA-534 PO ×2 (16:57)
[2017-09-07] MEDS ORDERED: CLON0.1T14 PO (16:57)
[2017-09-07] MEDS ORDERED: IBUP-1957 PO (16:57)
[2017-09-07] MEDS ORDERED: HYDR50CA PO (16:58)
--- NOTE | 2017-09-07 19:12 | NUR ---
END OF SHIFT NOTE Patient completed his Ativan/Subutex taper tolerated well. During shift patient did not receive any PRN medication. Vital signs remained WNL. Encourage Po fluids as tolerated. Last CIWA score was 3/COWS-3 @ 1600. Patient attended groups and activities. Patient scheduled for discharge in AM. Skin intact warm and dry to touch. All needs attended, Safety measures in place. Patient endorsed to night nurse in stable condition.
--- NOTE | 2017-09-07 19:30 | NUR ---
START OF SHIFT Pt is a 27 y/o male admitted on 08/31/17 for ETOH and opiate dependence. Pt was dependent on 1 liter daily and 0.5 gram of heroin daily. Pt is full code, NKA, regular diet and on fall/seizure precautions. Pt denies hx of seizures. Pt finished a 5 day Ativan and modified Subutex taper and is scheduled to be d/c tomorrow. Upon assessment pt presents with anxiety, body aches 7/10, tremors, flushed skin, restlessness, decreased appetite, intermittent headache, dysphoria and anhednonia. Respirations 16, even and unlabored. Denies N/V/D. Denies chest pain or SOB. Medications due. Safety measures in place. Call light within reach. Will continue to monitor.
[2017-09-07 20:00] VITALS: BP 128/73
[2017-09-07] MEDS: METHOCARBAMOL 750 MG TABLET PO PRN (21:18)
[2017-09-07] MEDS: diphenhydrAMINE 50 MG CAPSULE PO PRN (21:18)
--- NOTE | 2017-09-07 21:18 | NUR ---
BELLA ARMSTRONG AND BENADRYL ADMINISTRATION Pt reports body aches 03/29 and requests sleep aid. Safety measures in place. Call light within reach. Will continue to monitor.
--- NOTE | 2017-09-07 22:18 | NUR ---
BELLA ARMSTRONG AND EMILYL REASSESSMENT Pt awake in recreational room, states he feels more tired and will go to bed soon. Pt reports improvement in body aches to tolerable level. Will continue to monitor.
[2017-09-08] VITALS: BP 110/66
--- NOTE | 2017-09-08 | NUR ---
COWS/CIWA DEFERRED Pt is laying in bed with eyes closed, COWS/CIWA deferred, to be assessed when pt is awake per orders. Respirations 16, even and unlabored. Safety measures in place. Call light within reach. Will continue to monitor.
--- NOTE | 2017-09-08 04:00 | NUR ---
COWS/CIWA DEFERRED AND VITALS REFUSED Pt is laying in bed with eyes closed, COWS/CIWA deferred, to be assessed when pt is awake per orders. Vitals refused. Respirations 16, even and unlabored. Safety measures in place. Call light within reach. Will continue to monitor.
--- NOTE | 2017-09-08 07:31 | NUR ---
END OF SHIFT Pt is a 27 y/o male admitted on 08/31/17 for ETOH and opiate dependence. Pt was dependent on 1 liter daily and 0.5 gram of heroin daily. Pt is full code, NKA, regular diet and on fall/seizure precautions. Pt denies hx of seizures. Pt finished a 5 day Ativan and modified Subutex taper and is scheduled to be d/c today. Pt presented with anxiety, body aches 7/10, tremors, flushed skin, restlessness, decreased appetite, intermittent headache, dysphoria and anhedonia. Scheduled medications and PRN Robaxin and Benadryl administered, effective in S/S of withdrawal as verbalized by pt. Last COWS 7 and CIWA 4 at 1999. Pt slept 7 hours. Intake 1084 ml, void x 3, stool x 0. Safety measures in place. Call light within reach. Pts needs have been met. Endorsed to day shift nurse.
--- NOTE | 2017-09-08 07:48 | NUR ---
BEGINNING OF SHIFT Patient endorsement report received from hydrometer calibrator nurse, all pertinent information discussed. Patient is a 27 year old male with admitting Dx: ETOH/Opiate dependence. and subspace use of: cannabis. Patient completed 5 day ativan and modified subutex, well tolerated, no ASE noted. Patient is scheduled to be discharge this morning, noted self motivated towards sobriety. Patient received awake, alert and oriented x4. per hydrometer calibrator patient slept for 7 hours. Patient received PRN: Benadryl as ordered. Patient with last cow score of: 7, and ciwa score of: 4. Patient was educated regarding plan of care for the day and medication regimen. safety measures in place. call light kept with in reach. will continue to monitor.
[2017-09-08 08:29] VITALS: BP 111/69
[2017-09-08 08:34] VITALS: BP 111/69
[2017-09-08] MEDS: CLONIDINE HCL 0.1 MG TABLET PO SCH (08:34)
[2017-09-08] MEDS: MULTIVITAMINS,THERAPEUTIC TABLET PO SCH (08:34)
[2017-09-08] MEDS: THIAMINE HCL 100 MG TABLET PO SCH (08:34)
[2017-09-08] MEDS: GABAPENTIN 300 MG CAPSULE PO SCH (08:34)
[2017-09-08] MEDS: FOLIC ACID 1 MG TABLET PO SCH (08:34)
[2017-09-08] MEDS: DICYCLOMINE HCL 20 MG TABLET PO SCH (08:34)
[2017-09-08] MEDS: NICOTINE 14 MG/24HR PATCH TD SCH (08:35)
--- NOTE | 2017-09-08 09:25 | NUR ---
Discharged: Patient left the unit at this time. COWS 1. CIWA 1 due to mild anxiety. VS stable. Educated patient on the discharge instructions. Patient verbalized good understanding. All clothings, belongings, valuables and medications returned to the patient. FLOOR INSTALLER cabinets and cassette were checked for any belongings. Picked up by [facility] [employer] [facility] at this time.
== END 2017-09-08 09:25 | disposition other institution (70) | DRG 895 ==
LOC: SRC 03:03
PROVIDERS: ADMIT Internal Medicine; ATTEND Internal Medicine
PROC: HZ2ZZZZ Detoxification Services for Substance Abuse Treatment (ICD-10-PCS; principal; 2017-08-31)
PROC: HZ41ZZZ Group Counseling for Substance Abuse Treatment, Behavioral (ICD-10-PCS; 2017-09-01)
PROC: HZ31ZZZ Individual Counseling for Substance Abuse Treatment, Behavioral (ICD-10-PCS; 2017-09-02)
DX: F10.230 Alcohol dependence with withdrawal, uncomplicated (principal); R17 Unspecified jaundice; E87.6 Hypokalemia; F11.23 Opioid dependence with withdrawal; Y90.9 Presence of alcohol in blood, level not specified; F12.10 Cannabis abuse, uncomplicated; F17.210 Nicotine dependence, cigarettes, uncomplicated; F41.9 Anxiety disorder, unspecified; Z91.89 Other specified personal risk factors, not elsewhere classified; Z81.1 Family history of alcohol abuse and dependence; K59.00 Constipation, unspecified; R73.9 Hyperglycemia, unspecified
CPT/HCPCS: 36415; 70030-TC; 80307; 80349; 83690; 83735; 84443; 85025; 86592; 86705; 86803; 87340; 87806; G0480; J2405; J3411; Q0162; Q0163